=== PATIENT | female | born 1945 | race Caucasian/White ===

== ENCOUNTER 2018-11-08 17:20 | Emergency (ER) | payer OTHER ==
[~2018-11-08] VITALS: Ht 160 cm; Wt 57.1 kg
[~2018-11-08 17:20] MED LIST: ASPIRIN325 PO; BACTRIM DS TAB1 EACH PO; CLEOCIN HCL150 MG PO; ELAVIL; HYDROCODONE-AP1 EAC6 PO; IBUPROFEN 800800 M1 PO; NOHOMEMEDICATIONS; NORCO 5-325 TA1 EACH PO; NYSTATIN 1100000 U/M BU
[2018-11-08 17:39] LABS: ABSOLUTE BASOPHILS 0.1 thou/uL (0.0-0.2); ABSOLUTE LYMPHOCYTES 1.7 thou/uL (0.8-5.3); ABSOLUTE MONOCYTES 0.7 thou/uL (0.0-1.2); ABSOLUTE NEUTROPHILS 5.1 thou/uL (1.6-8.1); BASOPHILS 0.9 %; EOSINOPHILS 0.2 %; HEMATOCRIT 41.6 % (37.0-47.0); HEMOGLOBIN 13.9 gm/dL (12.0-15.0); MCH 30.6 pg (26.0-34.0); MCHC 33.5 g/dL (28.0-37.0); MCV 91.4 fL (80.0-100.0); NUCLEATED RBCS 0 /100WBC; PLATELET COUNT* 246 thou/uL (150-400); POLYS 66.9 %; RBC 4.55 mil/uL (4.20-5.00); RDW-CV 13.3 % (10.5-14.5); WBC 7.6 thou/uL (4.0-11.0)
[2018-11-08 17:49] LABS: ANION GAP 13 mmol/L (7-16); BUN 11 mg/dL (7-18); CALCIUM 9.1 mg/dL (8.5-10.1); CHLORIDE 106 mmol/L (98-107); CO2 25 mmol/L (21-32); CREATININE 0.8 mg/dL (0.6-1.3); GLUCOSE 117 mg/dL (70-99); POTASSIUM 3.6 mmol/L (3.5-5.1); SODIUM 144 mmol/L (136-145)
[2018-11-08 17:50] LABS: APTT 24.5 Seconds (25.0-31.3)
[2018-11-08 18:03] LABS: ALKALINE PHOSPHATASE 56 U/L (46-116); CK-MB MASS 8.9 ng/mL (<0.5-3.6); NT-PRO BRAIN NAT PEPTIDE 218 pg/mL (<300); SGOT 149 U/L (15-37); SGPT 62 U/L (30-65); TOTAL PROTEIN 7.3 g/dL (6.4-8.2); TROPONIN-I LEVEL <0.06 ng/mL (<0.06)
[2018-11-08 18:35] VITALS: BP 147/70
--- NOTE | 2018-11-09 10:58 | EKG ---
[place] [address] ELECTROCARDIOGRAM REPORT Name: GLADYS MCKEON Williams Room: [facility]#: [id number] Admission: 11/08/18 Attend Phys: Discharge: 11/08/18 Date of : 47 Report #: [id number] THIS REPORT FOR: //name// [facility] ED Test Date: 2018-11-08 Test Time: 17:40:43 Pat Name: GLADYS MCKEON Department: Room: Gender: F Rn Intern: : 1945 Requested By: Anthony Toledo Order Number: [id number] MD: Danielito Osorio Measurements Intervals [place] Rate: 75 P: 69 [place]: 147 QRS: -32 QRSD: 100 T: 21 QT: 398 QTc: 445 Interpretive Statements Sinus rhythm Left axis deviation Abnormal R-wave progression, early transition Compared to ECG 11/03/2016 22:00:40 no change Electronically Signed On 11-09-2018 10:58:25 CDT by Danielito Osorio [email or web address] <ELECTRONICALLY SIGNED> By: Danielito Osorio MD, [facility] 11/09/18 1058 [id number] Danielito Osorio MD, FACC /EPI
== END 2018-11-08 18:35 | disposition home or self-care (01) ==
LOC: M.ERS 17:20
PROVIDERS: Family Medicine
DX: G45.9 Transient cerebral ischemic attack, unspecified (principal); E86.0 Dehydration; M62.82 Rhabdomyolysis; Z90.49 Acquired absence of other specified parts of digestive tract; Z90.89 Acquired absence of other organs

== ENCOUNTER 2019-03-16 12:04 | Inpatient (IN) | payer OTHER ==
[~2019-03-16] VITALS: Ht 160 cm; Wt 61.5 kg
[2019-03-16 12:09] VITALS: BP 159/81
[2019-03-16 12:38] LABS: ABSOLUTE BASOPHILS 0.1 thou/uL (0.0-0.2); ABSOLUTE LYMPHOCYTES 1.3 thou/uL (0.8-5.3); ABSOLUTE MONOCYTES 0.7 thou/uL (0.0-1.2); ABSOLUTE NEUTROPHILS 5.6 thou/uL (1.6-8.1); BASOPHILS 0.9 %; EOSINOPHILS 0.4 %; HEMATOCRIT 40.5 % (37.0-47.0); HEMOGLOBIN 13.8 gm/dL (12.0-15.0); LYMPHOCYTES 16.5 %; MCH 31.5 pg (26.0-34.0); MCHC 34.1 g/dL (28.0-37.0); MCV 92.4 fL (80.0-100.0); MONOCYTES 8.8 %; MPV 8.1 fl. (7.2-11.1); NUCLEATED RBCS 0 /100WBC; PLATELET COUNT* 255 thou/uL (150-400); POLYS 73.4 %; RBC 4.38 mil/uL (4.20-5.00); RDW-CV 13.4 % (10.5-14.5); WBC 7.7 thou/uL (4.0-11.0)
[2019-03-16 12:50] LABS: CALCIUM 9.4 mg/dL (8.5-10.1); CREATININE 0.8 mg/dL (0.6-1.3); POTASSIUM 3.9 mmol/L (3.5-5.1)
[2019-03-16 13:03] LABS: ALBUMIN 3.7 g/dL (3.4-5.0); TOTAL BILIRUBIN 0.5 mg/dL (<0.1-1.0); TOTAL PROTEIN 7.1 g/dL (6.4-8.2)
[2019-03-16 17:55] VITALS: BP 154/77
[2019-03-16 18:00] VITALS: BP 168/72
--- NOTE | 2019-03-16 19:07 | NUR ---
RECEIVED PT FROM ER AT 1800, GET SITUATED TO ROOM. TELE IN PLACED TRACING SR. PT DENIES PAIN. AOX4, UP SBA, O2 SAT 90'S RA. ADMISSION ASSESSMENT CHARTED, VSS, CALL LIGHT WITHIN REACH, HOURLY ROUNDING, WILL CONTINUE TO MONITOR.
[2019-03-16 20:19] VITALS: BP 142/65
[2019-03-17] VITALS: BP 145/71
[2019-03-17 04:00] VITALS: BP 124/67
--- NOTE | 2019-03-17 07:00 | NUR ---
PT IS ABLE TO COMMUNICATE HER NEEDS TO STAFF EFFECTIVELY. SHE HAS DENIED THE NEED FOR PAIN MEDICATION UP TO THIS TIME. SHE DID HAVE SOME BLEEDING, WHICH SHE REPORTS CAME FROM HER VAGINAL AREA; MD WAS INFORMED, NO MEW ORDERS RECEIVED. 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 NEUROLOGY CONSULTED. POSSIBLE MRI TODAY. POSSIBLE DISCHARGE TODAY.
[2019-03-17 07:10] VITALS: BP 135/59
[2019-03-17 09:15] LABS: CHOLESTEROL 186 mg/dL (<200); HDL CHOLESTEROL 75 mg/dL (>40); LDL CHOLESTEROL 97 mg/dL (<100); TC:HDL 2.5 Ratio (Not establshd); TRIGLYCERIDE 71 mg/dL (<150); VLDL 14 mg/dL (<40)
[2019-03-17 09:19] LABS: SERUM ASSESSMENT Clear
[2019-03-17 10:24] LABS: ALBUMIN 3.5 g/dL (3.4-5.0); CALCIUM 9.1 mg/dL (8.5-10.1); CREATININE 0.7 mg/dL (0.6-1.3); POTASSIUM 4.8 mmol/L (3.5-5.1); TOTAL BILIRUBIN 0.5 mg/dL (<0.1-1.0); TOTAL PROTEIN 6.3 g/dL (6.4-8.2)
--- NOTE | 2019-03-17 10:35 | NUR ---
INITAL ASSESSMENT COMPLETED CHARTED. VSS. PT DENIES PAIN, SOA, N/V/D. PT DENIES ANY FURTHER NEEDS AT THIS TIME. HOURLY ROUNDING IN PLACE FOR PT SAFETY. CLWR.
[2019-03-17 11:46] VITALS: BP 157/63
[2019-03-17] MEDS ORDERED: PRAVASTATIN SOD40 MG PO (13:33)
[2019-03-17 13:34] VITALS: BP 157/63
[2019-03-17] MEDS ORDERED: ASA81BEC PO (13:34)
--- NOTE | 2019-03-17 13:41 | 2DMMODE ---
[place] [address] 2 D/M-MODE ECHOCARDIOGRAM Name: GLADYS MCKEON Room: [address] IN [facility]#: [id number] Admission: 03/16/19 Attend Phys: Armen Han Discharge: Date of : 47 Date of Service: 03/17/19 1340 Report #: [id number] THIS REPORT FOR: //name// APPROVED REPORT Study performed: 03/17/2019 11:00:19 EXAM: Comprehensive 2D, Doppler, and color-flow Echocardiogram Patient Location: In-Patient Room #: [facility] Status: routine BSA: 1.64 HR: 49 bpm BP: 135/59 mmHg Rhythm: NSR Other Information Study Quality: Good Indications CVA/TIA Echo Enhancing Agent Indication: Rule out Shunt Agent(s) / Amount(s) Used: Agitated Saline 10 cc 2D Dimensions IVSd: 8.60 (7-11mm) LVOT Diam: 19.18 (18-24mm) LVDd: 47.72 mm PWd: 10.38 (7-11mm) Ascending Ao: 36.09 (22-36mm) LVDs: 30.12 (25-40mm) Aortic Root: 31.65 mm Volumes Left Atrial Volume (Systole) LA ESV Index: 23.80 mL/m2 Aortic Valve AoV Peak Rudi.: 1.09 m/s AO Peak Gr.: 4.73 mmHg LVOT Max P.48 mmHg AO Mean Gr.: 2.64 mmHg LVOT Mean P.42 mmHg LVOT Max V: 1.17 m/s AO V2 VTI: 23.40 cm LVOT Mean V: 0.70 m/s BETZY (VTI): 3.24 cm2 LVOT V1 VTI: 26.25 [place] [address] 2 D/M-MODE ECHOCARDIOGRAM Name: GLADYS MCKEON Room: [address] IN [facility]#: [id number] Admission: 03/16/19 Attend Phys: Armen Han Discharge: Date of : 47 Date of Service: 03/17/19 1340 Report #: [id number] Mitral Valve E/A Ratio: 1.07 MV Decel. Time: 244.49 ms MV E Max Rudi.: 0.63 m/s MV PHT: 70.90 ms MVA (PHT): 3.10 cm2 TDI E/Lateral E': 6.30 E/Medial E': 6.30 Medial E' Rudi.: 0.10 m/s Lateral E' Rudi.: 0.10 m/s Pulmonary Valve PV Peak Rudi.: 0.87 m/s PV Peak Gr.: 3.03 mmHg Tricuspid Valve RAP Estimate: 5.00 mmHg TR Peak Gr.: 26.18 mmHg RVSP: 31.00 mmHg PA Pressure: 31.00 mmHg Left Ventricle The left ventricle is normal size. There is normal LV segmental wall motion. There is normal left ventricular wall thickness. Left ventricular systolic function is normal. The left ventricular ejection fraction is within the normal range. LVEF is 55-60%. The left ventricular diastolic function is normal. Right Ventricle Right ventricle is at the upper limits of normal. The right ventricular systolic function is normal. Atria The left atrium size is normal. Interatrial septum is intact without evidence of ASD or PFO. Right atrium is at the upper limits of normal. Aortic Valve Mild aortic valve sclerosis. No aortic regurgitation is present. There is no aortic valvular stenosis. Mitral Valve The mitral valve is normal in structure. There is no mitral valve regurgitation noted. No evidence of mitral valve stenosis. Tricuspid Valve The tricuspid valve is normal in structure[place] [address] 2 D/M-MODE ECHOCARDIOGRAM Name: LINDAGLADYS Room: [address] IN [facility]#: [id number] Admission: 03/16/19 Attend Phys: Armen Han Discharge: Date of : 47 Date of Service: 03/17/19 1340 Report #: [id number] regurgitation. Mild pulmonary hypertension. Pulmonic Valve The pulmonary valve is normal in structure. There is no pulmonic valvular regurgitation. Great Vessels The aortic root is normal in size. IVC is normal in size and collapses >50% with inspiration. Pericardium There is no pericardial effusion. <Conclusion> The left ventricle is normal size. There is normal left ventricular wall thickness. Left ventricular systolic function is normal. The left ventricular ejection fraction is within the normal range. LVEF is 55-60%. The left ventricular diastolic function is normal. Right ventricle is at the upper limits of normal. The right ventricular systolic function is normal. The left atrium size is normal. Right atrium is at the upper limits of normal. Mild aortic valve sclerosis. No aortic regurgitation is present. There is no aortic valvular stenosis. The mitral valve is normal in structure. The tricuspid valve is normal in structure. Mild tricuspid regurgitation. Mild pulmonary hypertension. IVC is normal in size and collapses >50% with inspiration. There is no pericardial effusion. There is normal LV segmental wall motion. Interatrial septum is intact without evidence of ASD or PFO. <ELECTRONICALLY SIGNED> By: Tanvir Vera MD, FACC 03/17/19 1340 1340 39 Tanvir Vera MD, FACC /INF
--- NOTE | 2019-03-17 17:49 | NUR ---
PT DISCHARGED AMA PRIOR TO COMPLETION OF PT EVALUATION AND INTERVENTIONS.
--- NOTE | 2019-03-17 18:25 | EKG ---
[place] [address] ELECTROCARDIOGRAM REPORT Name: GLADYS MCKEON Room: [address] IN .R.#: [id number] Admission: 03/16/19 Attend Phys: Andrea Kwon Discharge: 03/17/19 Date of : 47 Report #: [id number] THIS REPORT FOR: //name// [facility] ED Test Date: 2019-03-16 Test Time: 12:15:01 Pat Name: GLADYS MCKEON Department: Room: [facility] Gender: F Personal Investment Adviser: [place] : 1945 Requested By: Renaldo Mazariegos Order Number: [id number] MD: Abdoulaye Cevallos Measurements Intervals [place] Rate: 82 P: 54 [place]: 146 QRS: -35 QRSD: 103 T: 33 QT: 400 QTc: 468 Interpretive Statements Sinus rhythm Left atrial enlargement Left axis deviation Low voltage, precordial leads Incomplete right bundle-branch block Borderline T abnormalities, anterior leads Compared to ECG 11/08/2018 17:40:43 Atrial abnormality now present Low QRS voltage now present Right ventricular hypertrophy now present T-wave abnormality now present Electronically Signed On 03-17-2019 18:25:06 CDT by Abdoulaye Cevallos [email or web address] <ELECTRONICALLY SIGNED> By: Abdoulaye Cevallos MD, FACC 03/17/19 1825 14 14 Abdoulaye Cevallos MD, FACC /EPI
[2019-03-17 23:07] LABS: GLYCOHEMOGLOBIN (HGB A1C) 5.5 % (4.8-5.6)
== END 2019-03-17 15:40 | disposition left against medical advice (07) | DRG 69 ==
LOC: M.ERS 12:04 → M.2W 15:56 → M.TBA-ER 15:56 → M.2W 18:08
PROVIDERS: Emergency Medicine; Psychiatry & Neurology Neurology; ADMIT Internal Medicine
DX: G45.9 Transient cerebral ischemic attack, unspecified (principal); M62.82 Rhabdomyolysis; K64.9 Unspecified hemorrhoids; N93.9 Abnormal uterine and vaginal bleeding, unspecified; Z90.49 Acquired absence of other specified parts of digestive tract; Z82.49 Family history of ischemic heart disease and other diseases of the circulatory system; Z79.899 Other long term (current) drug therapy; Z53.29 Procedure and treatment not carried out because of patient's decision for other reasons